=== PATIENT | male | born 1995 | race Caucasian/White ===

== ENCOUNTER 2020-09-15 16:09 | Inpatient (IN) ==
[2020-09-15 17:04] LABS: Basophils # 0.1 K/mcL (0.0-0.2); Basophils % 0.6 %; Eosinophils % 0.3 %; Hematocrit 48.8 % (37.5-50.1); Hemoglobin 16.9 g/dL (12.9-16.9); Immature Granulocytes % 0.2 % (0-4); Lymphocytes % 19.8 %; Mean Corpuscular HGB Conc 34.6 g/dL (31.6-35.5); Mean Corpuscular Hemoglobin 30.4 pg (28.0-33.3); Mean Corpuscular Volume 87.8 fL (83.0-100.0); Mean Platelet Volume 8.9 fL (9.4-12.4); Monocytes # 0.6 K/mcL (0.0-1.3); Monocytes % 5.4 %; Neutrophils # 7.6 K/mcL (1.6-8.9); Platelet Count 260 K/mcL (140-400); Red Blood Count 5.56 M/mcL (4.19-5.50); Red Cell Distribution Width 11.9 % (11.5-14.5); Segmented Neutrophils % 73.7 %; White Blood Count 10.3 K/mcL (4.3-11.1)
[2020-09-15 17:12] LABS: Amorphous Sediment,Urine Few per hpf (None-Few); Bilirubin,Urine Negative (Negative); Blood,Urine Negative (Negative); Clarity,Urine Turbid (Clear); Color,Urine Yellow (Yellow); Glucose,Urine (UA) Normal (Normal); Ketones,Urine Negative (Negative); Leukocyte Esterase,Urine Negative (Negative); Nitrite,Urine Negative (Negative); PH,Urine 7.5 pH Units (5.0-8.0); Protein,Urine Trace mg/dL (Neg-Trace); Urobilinogen,Urine Normal (Normal)
[2020-09-15 17:16] LABS: Amphetamine Screen,Urine Negative ng/mL (Cutoff=1000); Barbiturate Screen,Urine Negative ng/mL (Cutoff=200); Benzodiazepines Screen,Urine Negative ng/mL (Cutoff=200); Cannabinoid Screen,Urine Negative ng/mL (Cutoff = 50); Cocaine Screen,Urine Negative ng/mL (Cutoff= 300); Opiate Screen,Urine Negative ng/mL (Cutoff=300); Phencyclidine Screen,Urine Negative ng/mL (Cutoff=25)
[2020-09-15 17:26] LABS: Acetaminophen < 10 mcg/mL (10-20); Alanine Aminotransferase 22 Units/L (7-52); Albumin/Globulin Ratio 1.6 (1.1-2.2); Alkaline Phosphatase 67 Units/L (34-104); Aspartate Amino Transferase 17 Units/L (13-39); Bilirubin,Direct 0.1 mg/dL (0.0-0.2); Bilirubin,Indirect 0.4 mg/dL (0.0-1.0); Bilirubin,Total 0.5 mg/dL (0.3-1.0); Ethanol < 10 mg/dL (Less than 10); Globulin 3.2 g/dL (2.4-3.5); Salicylate < 2.5 mg/dL (15.0-30.0); Total Protein 8.2 g/dL (6.4-8.9)
[2020-09-15] MEDS ORDERED: *HR* LORazepam 1 MG TABLET PO PRN (18:52)
[2020-09-15] MEDS ORDERED: Mag Hydrox/Al Hydrox/Simeth 30 ML UDC PO PRN (18:52)
[2020-09-15] MEDS ORDERED: Haloperidol Lactate 5 MG/ML VIAL IM PRN (18:52)
[2020-09-15] MEDS ORDERED: Ibuprofen 400 MG TABLET PO PRN (18:52)
[2020-09-15] MEDS ORDERED: MOM Conc 10 ML UD.LIQ PO PRN (18:52)
[2020-09-15] MEDS ORDERED: hydrOXYzine pamoate 25 MG CAPSULE PO PRN (18:52)
[2020-09-15] MEDS ORDERED: *HR* LORazepam 2 MG/ML VIAL IM PRN (18:52)
[2020-09-15] MEDS ORDERED: Acetaminophen 325 MG TABLET PO PRN (18:52)
[2020-09-15] MEDS ORDERED: QUEtiapine Fumarate 25 MG TABLET PO PRN (18:52)
[2020-09-15] MEDS ORDERED: haloperidoL 5 MG TABLET PO PRN (18:52)
[2020-09-16] MEDS: QUEtiapine Fumarate 100 MG TABLET PO SCH (21:25)
[2020-09-17] MEDS: QUEtiapine Fumarate 100 MG TABLET PO SCH (21:07)
[2020-09-18] MEDS: QUEtiapine Fumarate 100 MG TABLET PO SCH (20:45)
[2020-09-19] MEDS: QUEtiapine Fumarate 100 MG TABLET PO SCH (20:25)
[2020-09-20 09:16] VITALS: BP 127/84
== END 2020-09-20 14:00 | disposition home or self-care (01) | DRG 750 ==
LOC: EMEROOARM 16:09 → 1ANU 21:24
PROVIDERS: ADMIT Psychiatry & Neurology Forensic Psychiatry; ATTEND Psychiatry & Neurology Forensic Psychiatry

== ENCOUNTER 2020-09-22 11:56 | Inpatient (IN) ==
[2020-09-22 12:39] LABS: Basophils % 0.7 %; Eosinophils # 0.1 K/mcL (0.0-0.6); Eosinophils % 1.4 %; Hematocrit 47.8 % (37.5-50.1); Hemoglobin 15.9 g/dL (12.9-16.9); Immature Granulocytes % 0.3 % (0-4); Lymphocytes % 35.4 %; Mean Corpuscular HGB Conc 33.3 g/dL (31.6-35.5); Mean Corpuscular Hemoglobin 29.1 pg (28.0-33.3); Mean Corpuscular Volume 87.5 fL (83.0-100.0); Mean Platelet Volume 8.9 fL (9.4-12.4); Monocytes # 0.5 K/mcL (0.0-1.3); Monocytes % 8.2 %; Neutrophils # 3.1 K/mcL (1.6-8.9); Platelet Count 226 K/mcL (140-400); Red Blood Count 5.46 M/mcL (4.19-5.50); Red Cell Distribution Width 11.9 % (11.5-14.5); White Blood Count 5.7 K/mcL (4.3-11.1)
[2020-09-22 13:10] LABS: Bilirubin,Urine Negative (Negative); Blood,Urine Negative (Negative); Clarity,Urine Clear (Clear); Color,Urine Light-Yellow (Yellow); Glucose,Urine (UA) Normal (Normal); Ketones,Urine Negative (Negative); Leukocyte Esterase,Urine Negative (Negative); Nitrite,Urine Negative (Negative); PH,Urine 6.5 pH Units (5.0-8.0); Protein,Urine Trace mg/dL (Neg-Trace); Specific Gravity,Urine > 1.030 (1.010-1.025); Urobilinogen,Urine Normal (Normal)
[2020-09-22 13:25] LABS: Acetaminophen < 10 mcg/mL (10-20); BUN/Creatinine Ratio 15 (6-26); Blood Urea Nitrogen 16 mg/dL (6-20); Calcium 10.3 mg/dL (8.6-10.3); Carbon Dioxide 25 mEq/L (23-29); Chloride 102 mEq/L (98-107); Chol/HDL Ratio 4.3 (0-4.9); Cholesterol 198 mg/dL (< 200); Ethanol < 10 mg/dL (Less than 10); Glucose 106 mg/dL (70-105); HDL Cholesterol 46 mg/dL (40-59); LDL Cholesterol,Calculated 95 mg/dL (< 100); Osmolality,Calculated 286 (280-300); Potassium 3.8 mEq/L (3.5-5.1); Salicylate < 2.5 mg/dL (15.0-30.0); Sodium 137 mEq/L (136-145); Triglycerides 287 mg/dL (< 150); eGFR For African Americans > 60 (> 60); eGFR For Non-African Americans > 60 (> 60)
[2020-09-22 13:26] LABS: Estimated Average Glucose 108 mg/dl; Hemoglobin A1C 5.4 %
[2020-09-22 13:34] LABS: Amphetamine Screen,Urine Negative ng/mL (Cutoff=1000); Barbiturate Screen,Urine Negative ng/mL (Cutoff=200); Benzodiazepines Screen,Urine Negative ng/mL (Cutoff=200); Cannabinoid Screen,Urine Negative ng/mL (Cutoff = 50); Cocaine Screen,Urine Negative ng/mL (Cutoff= 300); Opiate Screen,Urine Negative ng/mL (Cutoff=300); Phencyclidine Screen,Urine Negative ng/mL (Cutoff=25)
[2020-09-22 16:19] LABS: Adenovirus Not Detected (Not Detect); Coronavirus 229E Not Detected (Not Detect); Coronavirus HKU1 Not Detected (Not Detect); Coronavirus NL63 Not Detected (Not Detect); Coronavirus OC43 Not Detected (Not Detect); Human Metapneumovirus Not Detected (Not Detect); Human Rhinovirus/Enterovirus Not Detected (Not Detect); SARS-CoV-2 Not Detected (Not Detect)
[2020-09-22 16:20] LABS: Bordetella Pertussis Not Detected (Not Detect); Chlamydophila pneumoniae Not Detected (Not Detect); Influenza A Subtype 2009 H1 Not Detected (Not Detect); Influenza B Not Detected (Not Detect); Mycoplasma pneumoniae Not Detected (Not Detect); Parainfluenza Virus 1 Not Detected (Not Detect); Parainfluenza Virus 2 Not Detected (Not Detect); Parainfluenza Virus 3 Not Detected (Not Detect); Parainfluenza Virus 4 Not Detected (Not Detect); Respiratory Syncytial Virus Not Detected (Not Detect)
[2020-09-22] MEDS ORDERED: haloperidoL 5 MG TABLET PO PRN (16:38)
[2020-09-22] MEDS ORDERED: *HR* LORazepam 1 MG TABLET PO PRN (16:38)
[2020-09-22] MEDS ORDERED: Haloperidol Lactate 5 MG/ML VIAL IM PRN (16:38)
[2020-09-22] MEDS ORDERED: *HR* LORazepam 2 MG/ML VIAL IM PRN (16:38)
[2020-09-22] MEDS: Acetaminophen 325 MG TABLET PO PRN (17:31)
[2020-09-22] MEDS: QUEtiapine Fumarate 25 MG TABLET PO PRN (20:39)
[2020-09-22] MEDS: hydrOXYzine pamoate 25 MG CAPSULE PO PRN (20:39)
[2020-09-23] MEDS ORDERED: QUEtiapine Fumarate 100 MG TABLET PO SCH (09:00)
[2020-09-23] MEDS ORDERED: MOM Conc 10 ML UD.LIQ PO PRN (09:12)
[2020-09-23] MEDS ORDERED: Mag Hydrox/Al Hydrox/Simeth 30 ML UDC PO PRN (09:12)
[2020-09-23] MEDS ORDERED: QUEtiapine Fumarate 25 MG TABLET PO PRN (10:56)
[2020-09-23] MEDS: Acetaminophen 325 MG TABLET PO PRN (20:59)
[2020-09-23] MEDS: QUEtiapine Fumarate 25 MG TABLET PO PRN (21:00)
[2020-09-23] MEDS: hydrOXYzine pamoate 25 MG CAPSULE PO PRN (21:00)
[2020-09-24] MEDS: Acetaminophen 325 MG TABLET PO PRN (20:05)
[2020-09-24] MEDS: hydrOXYzine pamoate 25 MG CAPSULE PO PRN (20:05)
[2020-09-24] MEDS ORDERED: QUEtiapine Fumarate 300 MG TABLET PO SCH (21:00)
[2020-09-25] MEDS: QUEtiapine Fumarate 100 MG TABLET PO SCH (20:51)
[2020-09-26] MEDS: clonazePAM 0.5 MG TABLET PO SCH ×2 (10:40→20:53)
[2020-09-26] MEDS: QUEtiapine Fumarate 100 MG TABLET PO SCH (20:53)
[2020-09-27] MEDS: clonazePAM 0.5 MG TABLET PO SCH ×2 (08:48→21:27)
[2020-09-27] MEDS: QUEtiapine Fumarate 100 MG TABLET PO SCH (21:26)
[2020-09-28] MEDS: clonazePAM 0.5 MG TABLET PO SCH ×2 (09:35→21:54)
[2020-09-28] MEDS: QUEtiapine Fumarate 25 MG TABLET PO SCH (17:57)
[2020-09-28] MEDS: QUEtiapine Fumarate 100 MG TABLET PO SCH (21:53)
[2020-09-29] MEDS: QUEtiapine Fumarate 25 MG TABLET PO SCH ×2 (10:06→14:16)
[2020-09-29] MEDS: clonazePAM 0.5 MG TABLET PO SCH (10:06)
[2020-09-29 10:16] VITALS: BP 136/86
[2020-09-29] MEDS ORDERED: clonazePAM 0.5 MG TABLET PO SCH (21:00)
== END 2020-09-29 15:00 | disposition home or self-care (01) | DRG 750 ==
LOC: EMEROOARM 11:56 → 1ANU 16:35
PROVIDERS: ADMIT Psychiatry & Neurology Psychiatry; ATTEND Psychiatry & Neurology Psychiatry